=== PATIENT | female | born 1965 | race Caucasian/White ===

== ENCOUNTER 2017-12-15 08:30 | Day surgery (SDC) | payer OTHER ==
[2017-12-14 12:05] VITALS: BMI 25.3
[2017-12-15] MEDS ORDERED: EPINEPHrine 1 MG/ML AMP ONE (11:12)
[2017-12-15] MEDS ORDERED: Fentanyl 250 MCG/5 ML VIAL ONE (11:17)
[2017-12-15] MEDS ORDERED: Midazolam HCl 2 mg/2 ml Vial ONE (11:17)
[2017-12-15] MEDS ORDERED: Propofol 500 MG/50 ML VIAL ONE (11:18)
--- NOTE | 2017-12-15 13:29 | OP ---
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 PROCEDURE PERFORMED: Microsuspension laryngoscopy with removal of bilateral vocal cord lesions. PROCEDURE IN DETAIL: After consent was obtained, the patient was identified, brought to the operatin g room and placed on the operating table in supine position. General endotracheal anesthesia was obt ained with a jet ventilating tube. The patient was positioned for surgery. The laryngoscope was scottie ana laura and then suspended from the laryngoscopy table and then with a 30 degree scope, we were able to v isualize the vocal nodules and removed them bilaterally using the Smish drawing hand. Lidocaine was applied to the larynx postop and patient was extubated, awakened and taken to recovery room where she remained in stable condition prior to discharge home.
[2017-12-15] MEDS ORDERED: PROPOFOL 200 MG/20 ML VIAL ONE (16:50)
[2017-12-15] MEDS ORDERED: Lidocaine 1% PF 5 ML VIAL ONE ×2 (16:50)
[2017-12-15] MEDS ORDERED: Dexamethasone 20 MG/5 ML VIAL ONE (16:50)
--- NOTE | 2017-12-18 08:48 | EKG ---
Test Reason : PREOP Blood Pressure : / mmHG Vent. Rate : 093 BPM Atrial Rate : 093 BPM P-R Int : 160 ms QRS Dur : 080 ms QT Int : 336 ms P-R-T Axes : 075 071 062 degrees QTc Int : 417 ms Normal sinus rhythm Normal ECG No previous ECGs available Confirmed by YAQUELIN CHAMPION, SYLVIA ([id number]) on 12/18/2017 8:47:56 AM Referred By: DANNY Confirmed By:SYLVIA JAMISON MD
== END 2017-12-15 14:10 | disposition home or self-care (01) ==
LOC: SDC 08:30
PROVIDERS: ATTEND Specialist
PROC: 0CBV8ZZ Excision of Left Vocal Cord, Via Natural or Artificial Opening Endoscopic (ICD-10-PCS; principal; 2017-12-15)
PROC: 0CBT8ZZ Excision of Right Vocal Cord, Via Natural or Artificial Opening Endoscopic (ICD-10-PCS; principal; 2017-12-15)
DX: J38.2 Nodules of vocal cords (principal); E78.5 Hyperlipidemia, unspecified; I10 Essential (primary) hypertension; Z79.899 Other long term (current) drug therapy
CPT/HCPCS: 36415; 85014; 93005; 93010; J0171; J1100; J2001; J2250; J2704; J3010